=== PATIENT | male | born 1960 | race Caucasian/White ===

== ENCOUNTER 2021-12-16 11:09 | Emergency (ER) | payer OTHER ==
[~2021-12-16] VITALS: Ht 182.9 cm; Wt 99.8 kg
== END 2021-12-17 12:00 | disposition home or self-care (01) ==
LOC: ER 11:09
DX: R53.1 Weakness (principal); I49.9 Cardiac arrhythmia, unspecified; Z86.72 Personal history of thrombophlebitis; Z20.822 Contact with and (suspected) exposure to COVID-19